=== PATIENT | male | born 1975 | race Caucasian/White ===

== ENCOUNTER 2023-02-16 15:14 | Emergency (ER) | payer OTHER ==
[~2023-02-16] VITALS: Ht 182.9 cm; Wt 93.0 kg
[2023-02-16 15:40] LABS: Calcium, Ionized (POC) 0.87 mmol/L (1.10-1.46); Chloride (POC) 75 mmol/L (98-108); Creatinine (POC) 1.4 mg/dL (0.8-1.3); Glucose (ISTAT POC) 161 mg/dL (70-99); Hemoglobin (POC) 11.2 g/dL (13.5-17.5); Potassium (POC) 4.2 mmol/L (3.5-5.5); Sodium (POC) 112 mmol/L (135-148); Total CO2 (POC) 22 mmol/L (21-32)
[2023-02-16 16:02] LABS: Albumin, Blood 2.4 g/dL (3.4-5.0); Albumin/Globulin Ratio 0.7 (0.8-1.8); Bilirubin, Total 9.6 mg/dL (0.1-1.0); Calcium, Blood 7.3 mg/dL (8.5-10.1); Creatinine, Blood 0.91 mg/dL (0.60-1.20); Globulin, Blood 3.4 g/dL (2.2-4.0); Potassium, Blood 4.1 mmol/L (3.5-5.5); Total Protein, Blood 5.8 g/dL (6.4-8.2)
[2023-02-16 17:08] LABS: BASOPHILS ABSOLUTE AUTO 0.02 K/mm3 (0.00-0.23); BASOPHILS PERCENT AUTO 0 % (0-2); EOSINOPHILS ABSOLUTE AUTO 0.02 K/mm3 (0.00-0.68); EOSINOPHILS PERCENT AUTO 0 % (0-6); IMMATURE GRAN ABSOLUTE AUTO 0.06 K/mm3 (0.00-0.10); IMMATURE GRAN PERCENT AUTO 1 % (0-1); LYMPHOCYTES ABSOLUTE AUTO 1.78 K/mm3 (0.84-5.20); LYMPHOCYTES PERCENT AUTO 16 % (21-46); MONOCYTES ABSOLUTE AUTO 0.79 K/mm3 (0.16-1.47); MONOCYTES PERCENT AUTO 7 % (4-13); Mean Platelet Volume 12.5 fL (9.1-12.4); NEUTROPHILS PERCENT AUTO 76 % (41-73); Platelet Count 87 K/mm3 (150-400)
[2023-02-16 17:09] LABS: Hemoglobin 8.1 g/dL (13.5-17.5); Red Blood Cell Count 2.25 M/mm3 (4.30-5.90); White Blood Cell Count 11.43 K/mm3 (4.00-11.30)
[2023-02-16 17:10] LABS: Mean Corpuscular HGB Conc 38.6 g/dL (31.5-36.5); Mean Corpuscular Volume 93 fL (80-100); RDW Coefficient Variation 13.2 % (11.7-14.2); RDW Standard Deviation 43.4 fL (35.1-46.3)
[2023-02-16 18:06] LABS: International Normalized Ratio 2.34
[2023-02-16] MEDS ORDERED: PROP10 PO (18:42)
[2023-02-16] MEDS ORDERED: SERT50 PO (18:42)
[2023-02-16] MEDS ORDERED: MELA3 PO (18:42)
[2023-02-16] MEDS ORDERED: QUET100 PO (18:42)
[2023-02-16 18:57] LABS: Hematocrit 18.6 % (37.0-53.0); Hemoglobin 7.2 g/dL (13.5-17.5)
[2023-02-16 19:02] LABS: Bun/Creatinine Ratio 11.4 (12.0-20.0); Creatinine, Blood 0.97 mg/dL (0.60-1.20); Potassium, Blood 4.4 mmol/L (3.5-5.5)
[2023-02-16 21:00] VITALS: BP 128/70
== END 2023-02-16 21:40 | disposition short-term general hospital (02) ==
LOC: ER 15:14
PROVIDERS: Emergency Medicine; Student in an Organized Health Care Education/Training Program
DX: D62 Acute posthemorrhagic anemia (principal); D69.6 Thrombocytopenia, unspecified; E87.1 Hypo-osmolality and hyponatremia; K70.9 Alcoholic liver disease, unspecified; Z88.0 Allergy status to penicillin; F17.200 Nicotine dependence, unspecified, uncomplicated
CPT/HCPCS: 36415; 36430; 71046; 74177; 80047; 80048; 80053; 81001; 83690; 83735; 83930; 84484; 85014; 85018; 85025; 85610; 86850; 86900; 86901; 86923; 93005; 93010; 96361; 96365-59; 96375; 99285-25; A9270; G0480; J2060; J2405; J3010; J3475; J7030; P9016; P9059; Q9967

== ENCOUNTER 2023-09-10 09:03 | Day surgery (SDC) | payer OTHER ==
[~2023-09-10] VITALS: Ht 182.9 cm; Wt 96.9 kg
[~2023-09-10 09:03] MED LIST: MELA3 PO; PROP10 PO; QUET100 PO; SERT50 PO
[2023-09-10] MEDS ORDERED: GABA300 PO (09:53)
[2023-09-10] MEDS ORDERED: MOBIC15 MG PO (09:54)
--- NOTE | 2023-09-10 10:29 | NUR ---
09/10/23 [facility] [facility] BECAUSE PATIENT STATES ALLERGY TO PENICILLIN WITH UNKNOWN REACTION. STATES HIS MOM TOLD HIM HE WAS ALLERGIC, UNSURE OF REACTION. PER DR MARTINEZ, OK TO PROCEED WITH ANCEF 2 GRAMS IV.
[2023-09-10 12:17] VITALS: BP 165/106
--- NOTE | 2023-09-10 12:17 | NUR ---
09/10/23 1217 [address] [facility] PT STATES THAT HE HAS NO PAIN AT THIS BUT KEEPS COMPLAINING ABOUT IT "I KNOW THAT ITS GOING TO HURT BY HOW IT FEELS, BUT IT DOESN'T HURT RIGHT NOW." DENIES NAUSEA.
== END 2023-09-10 12:54 | disposition home or self-care (01) ==
LOC: ORSCSDS 09:03
PROVIDERS: Orthopaedic Surgery
PROC: 0JNK0ZZ Release Left Hand Subcutaneous Tissue and Fascia, Open Approach (ICD-10-PCS; principal; 2023-09-10 10:45)
DX: M72.0 Palmar fascial fibromatosis [Dupuytren] (principal); F41.8 Other specified anxiety disorders; Z79.899 Other long term (current) drug therapy; K74.60 Unspecified cirrhosis of liver; Z87.891 Personal history of nicotine dependence
CPT/HCPCS: J0171; J0690; J1100; J1170; J2250; J2405; J2704; J2795; J3010; J7120